=== PATIENT | female | born 1970 | race Caucasian/White ===

== ENCOUNTER 2024-09-05 20:22 | Emergency (ER) | payer BC, SELFPAY ==
[2024-09-05 20:25] VITALS: BP 116/70
--- NOTE | 2024-09-05 20:47 | ED.GENMED ---
History of Present Illness
General
Chief Complaint: Musculo-Skeletal Complaint
Source: patient
Exam Limitations: none
Time Seen by Provider: 09/05/24 20:31
Nursing documentation reviewed up to this point in time: agreed with
History of Present Illness
History of Present Illness:
Patient is a 54 year old female presenting for evaluation of right ankle injury. Patient states that she was walking on the sidewalk about an hour prior to arrival when she hit an uneven sidewalk inverting her right ankle. She did fall to the
ground, although braced herself with her hands. Patient denies any head strike or loss of consciousness. Patient reports pain in her right ankle, worse with ambulating. Patient denies any numbness or tingling in her right lower extremity. She
does report mild soreness in her left hand.
No other concerns today.
Past History
Past History
ED Past Medical History: Seizures and Other (Thalassemia minor)
ED Past Surgical History: None
Social History
Tobacco: Non-smoker
Alcohol: Occasional
Drug: None
Living: with family
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
Review of Systems
Review of Systems
Allergies reviewed?: Yes
All Other Systems: ROS reviewed and negative except as documented in HPI and ROS
Phy Exam
Physical Exam
Physical Exam:
Vitals: Patient's vital signs are stable. Afebrile
General: Patient is well appearing, no acute distress
Skin: Mild abrasion just inferior to left patella. Mild abrasion to right palm
Head: Normocephalic, atraumatic
Throat: Protecting airway
Neck: Normal ROM, no cervical spine tenderness
Cardiac: Regular rate
Pulm: No apparent respiratory distress
Abdomen: Nondistended
Extremities: Edema and tenderness of right lateral malleolus. No tenderness of right medial malleolus, right midfoot, base of right fifth metatarsal, right calcaneus, or head of right fibula. Right Achilles tendon intact. Right knee atraumatic
and nontender with full range of motion. Left ankle and left knee atraumatic and nontender with full range of motion. Very minor abrasion just inferior to left patella. Palpable DP and PT pulse in the bilateral lower extremities. Bilateral lower
extremities neurovascular intact. Mild abrasion to right palm. Patient has no bony tenderness of left/right wrist or left/right hand. Patient has full range of motion in bilateral upper extremities without pain. Palpable radial pulse in
bilateral upper extremities.
Neuro: Grossly intact
Psychiatric: Normal affect.
Course
Orders/Labs/Results
Orders:
Orders
09/05/24 20:44
Ibuprofen [Motrin] 600 mg PO NOW STA
Tetanus/Diphth/Acelpertussis [Adacel] 0.5 ml IM .ONCE ONE
Ankle, Right 3 view CR [CR Ankle - Right Min 3 Views *] Urgent
Comment:
Reason For Exam: ankle pain/swelling s/p fall
09/05/24 21:47
Air Splint Right-Treatment ONCE
Vital Signs
Initial and Last Documented VS:
Initial Vital Signs
Temp Pulse Resp BP Pulse Ox
97.8 F 66 20 116/70 100
09/05/24 20:25 09/05/24 20:25 09/05/24 20:25 09/05/24 20:25 09/05/24 20:25
Last Documented Vital Signs
Temp Pulse Resp BP Pulse Ox
97.8 F 66 20 116/70 100
09/05/24 20:25 09/05/24 20:25 09/05/24 20:25 09/05/24 20:25 09/05/24 20:25
MDM/Problems Addressed
Differential Diagnosis Includes:
Known to: Ankle sprain, ankle fracture, abrasion, etc.
MDM/Problems Addressed:
54-year-old female presenting following mechanical fall with right ankle pain. No head strike or loss of consciousness. Vital stable. Exam as above. Localized swelling and tenderness of right lateral malleolus. Otherwise left lower extremity
and bilateral upper extremities with excellent range of motion. No indication for imaging of left lower extremity or bilateral upper extremities. There are very mild abrasions to just inferior to left patella and right palm which we will irrigate.
No evidence of head or neck trauma. No spinal tenderness. Will update tetanus. Will check ankle x-ray. Will give ibuprofen.
Chronic conditions affecting care:
N/A
Acute Exacerbation and/or Progression of Chronic Illness:
N/A
*Radiology
Radiology exam reviewed: preliminary read by ED provider (No acute fracture) and radiology read reviewed (No acute fracture or dislocation)
*Pulse Oximetry
Patient hypoxic: no
*EKG
Interpreted by ED Provider?: NA
*Risk Management Professional Interpretation
Rate: Risk Management Professional- N/A
*Critical Care Note
Total Time (30-74mins, 75-104mins- exclusive of procedures): Not Applicable
Update Note
Update Note:
Update 9:45 PM: X-ray of right ankle shows no evidence of acute fracture or dislocation. Suspect likely ankle sprain. Will place patient in Aircast. Given patient's inability ambulate without pain will provide crutches, as well. Recommended
RICE, Motrin/Tylenol as needed for pain. Orthopedic information given if symptoms persist/worsen for follow-up. Return precaution discussed. Case discussed with attending physician.
ED Attending Note
-
Portions of this chart may have been created with voice recognition software.� Occasional wrong word or��sound alike� substitutions may have occurred due to the inherent limitations of voice recognition software.
Discharge Plan
Departure
Patient Disposition: Home (Routine Discharge)
Date of Disposition: 09/05/24
Time of Disposition: 21:48
Patient with high blood pressure during this ER visit?: No
Covid-19: Not Applicable
Discharge Problem:
Right ankle sprain
Instructions: Ankle sprain
Prescriptions:
No Action
divalproex 500 MG tablet,delayed release (DR/EC)
500 mg PO BID
Referrals:
Antoine Cruz MD [Active] - As needed
Activity Restrictions/Additional Instructions:
Return to the emergency department with any numbness/tingling in right foot, significant swelling or pain, worsening in current symptoms, or any other concerns
-As discussed�your x-ray performed in the emergency department did not show any evidence of a fracture. You may have sustained an ankle sprain.
-You should continue to wear Aircast, and keep ankle elevated and ice throughout the day. You can take Motrin and/or Tylenol as needed for pain.
-You should follow-up with orthopedics if symptoms fail to improve or with any acute worsening
Monitor your symptoms closely and return to the emergency department with any acute worsening/new symptoms
Interventions
Interventions:
*Risk Screen - Suicide Last Done: 09/05/24 20:25
*General Assessment Last Done: 09/05/24 21:08
*Neglect/Abuse Screening Last Done: 09/05/24 20:25
ED-Musculoskeletal Assessment Last Done: 09/05/24 20:44
Discharge Date and Time
Print Language: JAPANESE
[2024-09-05] MEDS: MOTRIN 600 MG PO (20:56)
[2024-09-05] MEDS: ADACEL 0.5 ML IM (20:57)
[2024-09-05 22:23] VITALS: BP 96/57
== END 2024-09-05 22:24 | disposition home or self-care (01) ==
LOC: EMR 20:22
PROVIDERS: EMERGENCY PHYSICIAN Emergency Medicine; FAMILY PHYSICIAN Family Medicine
DX: S93.401A Sprain of unspecified ligament of right ankle, initial encounter (principal); S80.211A Abrasion, right knee, initial encounter; S60.511A Abrasion of right hand, initial encounter; W22.8XXA Striking against or struck by other objects, initial encounter; Z23 Encounter for immunization
CPT/HCPCS: 99283; 90471; 73610; 90715

== ENCOUNTER 2025-09-29 06:32 | Day surgery (SDC) | payer BC, SELFPAY | END 2025-09-29 12:08 | disposition home or self-care (01) | LOC: GI 06:32 | PROVIDERS: ATTENDING PHYSICIAN Internal Medicine | DX: Z12.11 Encounter for screening for malignant neoplasm of colon (principal); D50.9 Iron deficiency anemia, unspecified; K57.30 Diverticulosis of large intestine without perforation or abscess without bleeding; R09.A2 Foreign body sensation, throat; R09.89 Other specified symptoms and signs involving the circulatory and respiratory systems; K31.89 Other diseases of stomach and duodenum; K44.9 Diaphragmatic hernia without obstruction or gangrene; Q40.2 Other specified congenital malformations of stomach; K22.2 Esophageal obstruction; K25.9 Gastric ulcer, unspecified as acute or chronic, without hemorrhage or perforation; K63.5 Polyp of colon; K29.50 Unspecified chronic gastritis without bleeding; K22.70 Barrett's esophagus without dysplasia; K86.9 Disease of pancreas, unspecified | CPT/HCPCS: 45380; 43239; 88305; 88342 ==